=== PATIENT | male | born 1955 | race Caucasian/White ===

== ENCOUNTER → 2018-11-04 20:05 | Outpatient (CLI) | payer MEDICAID ==
[2015-10-21 13:53] VITALS: BMI 35.0
[~2018-11-04 20:05] MED LIST: AMBIEN10 MG PO; BAYER CHEWABLE81 MG PO; BRILINTA90 MG PO; CARDIZEM CD240 MG PO; GLUCOPHAGE500 MG PO; HYTRIN10 MG PO; HYZAAR 100-25 T1 TAB PO; IBUDONE 10-2001 TAB PO; XANAX0.5 MG PO
== END | disposition home or self-care (01) ==
LOC: D.LABREF 20:05
DX: R31.9 Hematuria, unspecified (principal)

== ENCOUNTER → 2018-11-18 10:12 | Outpatient (CLI) | payer MEDICAID ==
[2015-10-21 13:53] VITALS: BMI 35.0
[~2018-11-18 10:12] MED LIST changes: +ENTOCORT EC3 MG PO; +FARXIGA10 MG PO; +HYDROCODON-ACE1 EA10 PO; +LIPITOR20 MG PO
== END | disposition home or self-care (01) ==
LOC: D.CT 10:12
DX: R31.21 Asymptomatic microscopic hematuria (principal)

== ENCOUNTER 2018-11-26 05:40 | Day surgery (SDC) | payer MEDICAID ==
[2018-11-25 10:37] LABS: HEMOGLOBIN 14.2 g/dL (13.5-17.5); MCH 34.3 pg (26.0-34.0); MCHC 33.8 g/dL (31.0-37.0); MCV 101.4 fL (80.0-100.0); MEAN PLATELET VOLUME 10.2 fL (7.4-10.4); RBC 4.14 10x6/uL (4.20-6.10)
[2018-11-25 10:38] LABS: CALC OSMOLALITY 279 mosm/kg (275-300); CALCIUM 8.7 mg/dL (8.5-10.1); CARBON DIOXIDE 26.5 mmol/L (21.0-32.0); CHLORIDE - SERUM 100 mmol/L (98-107); CREATININE - SERUM 0.8 mg/dL (0.6-1.3); GLUCOSE 140 mg/dL (74-106); SODIUM 138 mmol/L (136-145); UREA NITROGEN 19 mg/dL (7-18); eGFR NON AFRICAN AMERICAN > 90 mL/min (90-120)
[~2018-11-26] VITALS: Ht 185.4 cm; Wt 117.9 kg
[2018-11-26 06:29] VITALS: BP 163/82; Ht 185.4 cm; Wt 117.9 kg
--- NOTE | 2018-11-26 09:03 | OP ---
PATIENT NAME: DOT FERNANDEZ MEDICAL RECORD: [id number] :55 LOCATION:[facility] ADMISSION DATE: SURGEON: ALEXIS GARCIA MD DATE OF OPERATION: 11/26/2018 SURGEON: Alexis Garcia MD ANESTHESIA: TIVA by Janusz Sr CRNA. DIAGNOSES: Elevated PSA of 4.5 and microscopic hematuria. PROCEDURE: Cystoscopy, transrectal ultrasound, and prostate biopsy. FINDINGS: A 36 gram prostate with intraprostatic stones. On cystoscopy, nonobstructive lateral lobes with a tight bladder neck. He has a trabeculated bladder. There are single ureteral orifices on each side. No bladder tumors were seen. The prostatic urethra is vascular. ESTIMATED BLOOD LOSS: None. SPECIMENS: Prostate biopsy cores. CLINICAL HISTORY: This is a 63-year-old male who was referred by the [facility] for an elevated PSA of 4.5. Previously, the PSA was normal. He has not started any testosterone treatments yet. He has history of diabetes mellitus type 2 and coronary angioplasty. He has been on terazosin for BPH for 6-7 years. For the past 8 years, he has had nocturia times 5-6 and the terazosin has not been really helping his symptoms. He has to void frequently up to 30 times a day. He feels that he is not fully emptying his bladder. Family history is negative for BPH and the grandfather had prostate cancer. On rectal examination, he has a rather flat prostate, which was about 30 grams in size without nodularity. He comes today for transrectal ultrasound of the prostate for an elevated PSA of 4.5. We will also be doing a cystoscopy for his microscopic hematuria. With respect to his voiding symptoms his IPSS score is 20 and his quality of life score is 4. His postvoid residual is 47 mL. HE IS ALLERGIC TO PENICILLIN. He was given Levaquin IV functional tester to the OR. DESCRIPTION OF PROCEDURE: The patient was given IV sedation. He was then placed in the dorsal lithotomy position and prepped and draped. We used a 17-Urdu cystoscope for cystoscopy. The findings are as outlined above. No bladder tumors were seen. The bladder was then emptied through the cystoscope sheath and the scope was removed. The transrectal ultrasound probe was introduced. He has a very broad flat prostate. Prostate size measurements were obtained at 36 grams. The intraprostatic stones are seen. No hypoechoic areas were seen. Sextant biopsies were obtained with at least 3 cores from each sextant. Once all the specimens were obtained, the procedure was terminated. The patient was awakened and brought to the preoperative holding area from where he will be sent home. I will see him in followup next week to review the pathology results with him. TRANSINT:[id number] Voice Confirmation ID: [id number] DOCUMENT ID: [id number] OPERATIVE REPORT [id number] DOT FERNANDEZ ROBERT S MD at 0903 CC: [id number] DICTATION DATE: 11/26/18817 SUGAR REFINERY SUPERVISOR: 11/26/[address] [facility] [address] [place] [address]
--- NOTE | 2018-11-26 09:23 | NUR ---
0900UP TO BATHROOM. POSTOP VOID #2 WITH YELLOW URINE. BUBBLES NOTED IN URINE/BOWL FROM URINARY STREAM. NO GROSS BLOOD OR CLOTS NOTED. BACK TO BED AMBULATORY WITHOUT PROBLEMS. IV DC'ED WITH CATH INTACT 575ML LTC. PRESSURE TO SITE. DRESSING. Ricky TAYLOR R.N. 0910 DRESSED, AWAKE, & ALERT. GIVEN DISCHARGE INFORMATION INCLUDING MED REC., RTC APPT., [facility] D/C INSTRUCTIONS, PROSTATE BIOPSY DISCHARGE INSTRUCTIONS, & CYSTOSCOPY D/C INSTRUCTIONS. PT VOICED UNDERSTANDING. NO QUESTIONS. TO PRIVATE CAR PER LISA ARGUETA Omise. HOME WITH ERIK PÉREZ, FRIEND. Ricky TAYLOR R.N.
== END 2018-11-26 09:10 | disposition home or self-care (01) ==
LOC: D.OPS 05:40 → D.PAN 07:30 → D.OPS 07:30 → D.PAN 08:10 → D.OPS 08:10
PROVIDERS: Anesthesiology
DX: C61 Malignant neoplasm of prostate (principal); N42.32 Atypical small acinar proliferation of prostate; R31.29 Other microscopic hematuria; N32.89 Other specified disorders of bladder; Z01.812 Encounter for preprocedural laboratory examination

== ENCOUNTER → 2018-12-06 10:01 | Outpatient (CLI) | payer MEDICAID ==
[2018-11-26 06:29] VITALS: BMI 34.3
== END | disposition home or self-care (01) ==
LOC: D.NM 10:00
PROVIDERS: ATTEND Urology
DX: C61 Malignant neoplasm of prostate (principal)

== ENCOUNTER → 2019-06-11 09:53 | Outpatient (CLI) | payer MEDICAID ==
[2018-11-26 06:29] VITALS: BMI 34.3
--- NOTE | 2019-06-12 15:51 | EC ---
PATIENT:DOT FERNANDEZ DATE OF SERVICE: 06/11/19 SEX: M MEDICAL RECORD: [id number] DATE OF : 55 [facility] AGE OF PATIENT: 63 ADMISSION DATE: 06/11/19 REFERRING PHYSICIAN: INTERPRETING PHYSICIAN: THEA MOY MD ECHOCARDIOGRAM REPORT ECHO CHARGES 4 ECHO COMPLETE Date: 06/11/19 CLINICAL DIAGNOSIS: H/O CAD/HTN/A-FIB ECHOCARDIOGRAPHIC MEASUREMENTS (adult normal given) AC root (d.<3.7cm) 4.3 cm LV Septum d (<1.2 cm> 1.3 cm Valve Excursion 1.2 cm LV Septum (systole) 2.2 cm Left Atria (s.<4.0cm> 5.9 cm LVPW d(<1.2cm) 1.5 cm RV (d.<2.3cm) 3.5 cm LVPW (sytole) 2.4 cm LV diastole(<5.6CM) 6.1 cm MV E-F(>70mm/sec) cm LV systole 2.9 cm LVOT Diameter 2.3 cm MV exc.(>10mm) cm Est.ejection fraction (50-75%) % DOPPLER: LVIT cm/sec A cm/sec E 163 cm/sec LA cm/sec RVSP 30.0 mmHg LVOT 128 cm/sec AOP1/2T m/s Asc. Ao 238 cm/sec RVOT 87.0 cm/sec RA cm/sec PA 121 cm/sec AV Gradient Peak 23.0 mmHg AV Mean 11.1 mmHg AV Area 2.4 cm MV Gradient Peak 18.1 mmHg MV Mean 4.9 mmHg MV Area cm COMMENTS: OP - HC Ward Maid: 1 JADEN LARESOE Technical Service Specialist: 3 Dr. Mitchell TAPE# PACS Pericardial Effusion Y DATE OF SERVICE: Adequate 2D, color flow, spectral Doppler, and M-mode. LVH is present. LV internal dimension is normal. Wall motion is normal. EF is greater than or equal to 55%. Aortic valve is tricuspid. No evidence of stenosis by Doppler interrogation. Left atrium is dilated at 5.9 cm. Mitral valve shows no prolapse. Mild MR. Right-sided chambers are grossly normal. Mild TR. Questionable ASD in the subcostal view. TRANSINT:[id number] Voice Confirmation ID: [id number] DOCUMENT ID: [id number] ECHOCARDIOGRAM REPORT [id number] DOT FERNANDEZ GREGORY A MD at 1551 CC: [id number] DICTATION DATE: 06/12/19 1252 SPECIALTY SALES CONSULTANT: 06/12/19 1309 DEP CLI 06/11/19 [place] [id number] [place] [id number]
== END | disposition home or self-care (01) ==
LOC: D.HCCARDIO 09:53
PROVIDERS: ATTEND Internal Medicine Interventional Cardiology
DX: I10 Essential (primary) hypertension (principal)

== ENCOUNTER → 2020-07-19 10:16 | Outpatient (CLI) | payer MEDICAID ==
[2018-11-26 06:29] VITALS: BMI 34.3
--- NOTE | 2020-07-21 10:43 | EC ---
PATIENT:DOT FERNANDEZ DATE OF SERVICE: 07/19/20 SEX: M MEDICAL RECORD: [id number] DATE OF : 55 [facility] AGE OF PATIENT: 64 ADMISSION DATE: 07/19/20 REFERRING PHYSICIAN: INTERPRETING PHYSICIAN: THEA MOY MD ECHOCARDIOGRAM REPORT ECHO CHARGES 4 ECHO COMPLETE Date: 07/19/20 CLINICAL DIAGNOSIS: HX OF CAD/AFIB/HTN / MITRAL AND TRICUSPID REGURG ECHOCARDIOGRAPHIC MEASUREMENTS (adult normal given) AC root (d.<3.7cm) 3.8 cm LV Septum d (<1.2 cm> 2.0 cm Valve Excursion 1.5 cm LV Septum (systole) 2.3 cm Left Atria (s.<4.0cm> 5.8 cm LVPW d(<1.2cm) 2.2 cm RV (d.<2.3cm) 5.4 cm LVPW (sytole) 2.7 cm LV diastole(<5.6CM) 5.9 cm MV E-F(>70mm/sec) cm LV systole 4.0 cm LVOT Diameter 2.1 cm MV exc.(>10mm) 2.2 cm Est.ejection fraction (50-75%) % DOPPLER: LVIT cm/sec A 106.0cm/sec E 67.0 cm/sec LA cm/sec RVSP 28 mmHg LVOT 104 cm/sec AOP1/2T m/s Asc. Ao 190 cm/sec RVOT 81 cm/sec RA cm/sec PA 131 cm/sec AV Gradient Peak 14.46mmHg AV Mean 7.37 mmHg AV Area 1.7 cm MV Gradient Peak 15.04mmHg MV Mean 3.54 mmHg MV Area cm COMMENTS: Keyliner: 2 TJ PLEITEZ Mixer Operator Hot Metal: 3 Dr. Mitchell TAPE# PACS Pericardial Effusion N DATE OF SERVICE: Adequate 2D echo, color-flow imaging, spectral Doppler, and M-Mode Fairly marked LVH. LV internal dimension is normal. Wall motion is normal. EF is greater than or equal to 55%. Aortic valve sclerosis without stenosis by Doppler interrogation. Left atrium is dilated 5.8 cm. Mitral valve is thickened. Mild plus MR. Right-sided chamber is grossly normal. Mild TR. TRANSINT:[id number] Voice Confirmation ID: [id number] DOCUMENT ID: [id number] ECHOCARDIOGRAM REPORT [id number] DOT FERNANDEZ GREGORY A MD at 1043 CC: [id number] DICTATION DATE: 07/20/20 1240 MANAGER UNDERWRITING: 07/20/20 1428 DEP CLI 07/19/20 [place] [id number] [place] [id number]
== END | disposition home or self-care (01) ==
LOC: D.HCCECHO 10:16
PROVIDERS: ATTEND Internal Medicine Interventional Cardiology
DX: I25.10 Atherosclerotic heart disease of native coronary artery without angina pectoris (principal)

== ENCOUNTER 2021-01-03 06:23 | Day surgery (SDC) | payer MEDICARE, MEDICAID ==
[~2021-01-03] VITALS: Ht 185.4 cm; Wt 120.0 kg
--- NOTE | ~2021-01-03 | OP ---
PATIENT NAME: DOT FERNANDEZ MEDICAL RECORD: [id number] :55 LOCATION:[facility] ADMISSION DATE: SURGEON: EZ SYLVESTER DO DATE OF OPERATION: 01/03/2021 PROCEDURE: Colonoscopy with polypectomy. INDICATIONS FOR PROCEDURE: Diverticular disease, hematochezia, history of colon polyps. SCOPE: Olympus video pediatric colonoscope. MEDICATIONS: Propofol 700 mg IV per anesthesia. WITHDRAWAL TIME: 14 minutes. ESTIMATED BLOOD LOSS: Minimal. COMPLICATIONS: None. FINDINGS AND DESCRIPTION OF PROCEDURE: Informed consent was given. The patient was made comfortable with the above medication. After reaching an adequate level of sedation by slow IV push, the patient was placed on his left side. Digital rectal examination was performed and was normal. The endoscope was advanced under direct visualization through the rectum to the cecum, confirmed by the presence of the appendiceal orifice and ileocecal valve. The endoscope was slowly withdrawn, and the mucosa was carefully examined. The prep quality was good involving the left side of the colon, but poor in the cecum, ascending colon, and transverse colon making visualization somewhat difficult. There were 5 polyps visualized on today's examination. They were all benign-appearing and sessile and located in the transverse colon. They ranged in size from 3 to 8 mm in diameter. They were all removed using a hot snare. There was evidence of mild diverticulosis involving the descending and sigmoid colon. Retroflexion was performed in the rectum with visualization of grade I internal hemorrhoids without bleeding. The endoscope was withdrawn from the patient. The patient tolerated the procedure well and there were no complications. IMPRESSION: 1. Five polyps as described above removed using a hot snare. 2. Mild diverticulosis of the left side of the colon. 3. Grade I internal hemorrhoids without bleeding. PLAN AND RECOMMENDATIONS: 1. Discharge home when recovery parameters are met. 2. Follow up biopsy specimen results. 3. High fiber diet. 4. Continue current medications. 5. Recall colonoscopy in 1 to 2 years based on a number of polyps removed today and poor prep quality. TRANSINT:[id number] Voice Confirmation ID: [id number] DOCUMENT ID: [id number] OPERATIVE REPORT [id number] DOT FERNANDEZ EZ SYLVESTER DO CC: [id number] DICTATION DATE: 01/03/21917 DIRECTOR OF FEDERAL SALES: 01/03/[address] [facility] 01/03/21 [facility] [address] [place] [address]
[2021-01-03 07:09] LABS: HEMATOCRIT 45.3 % (42.0-54.0); HEMOGLOBIN 14.6 g/dL (13.5-17.5); MCH 32.4 pg (26.0-34.0); MCHC 32.2 g/dL (31.0-37.0); MCV 100.7 fL (80.0-100.0); MEAN PLATELET VOLUME 9.1 fL (7.4-10.4); RBC 4.5 10x6/uL (4.20-6.10)
[2021-01-03 07:24] LABS: INR 1.16 (0.85-1.17); PROTIME 13.7 SECONDS (11.6-15.0)
[2021-01-03] MEDS ORDERED: XARELTO20 MG PO (07:25)
[2021-01-03] MEDS ORDERED: XANAX0.5 MG PO (07:26)
[2021-01-03 07:30] VITALS: Ht 185.4 cm; Wt 120.0 kg
[2021-01-03 07:59] LABS: BASOPHILS 0.5 % (0-2); EOSINOPHILS 3.2 % (0-7); HEMATOCRIT 44.3 % (42.0-54.0); HEMOGLOBIN 14.6 g/dL (13.5-17.5); LYMPHOCYTE ABS# 1.68 10x3/uL (1.32-3.57); LYMPHOCYTES 41.9 % (15-50); MCH 33.1 pg (26.0-34.0); MCV 100.5 fL (80.0-100.0); MEAN PLATELET VOLUME 9.5 fL (7.4-10.4); MONOCYTES 12.7 % (2-11); NEUTROPHIL ABS# 1.67 10x3/uL (1.78-5.38); NEUTROPHILS 41.7 % (40-80); PLATELET COUNT 126 10x3/uL (130-400); RBC 4.41 10x6/uL (4.20-6.10); RDW 12.9 % (11.5-14.5)
[2021-01-03 08:00] LABS: CALC OSMOLALITY 280 mosm/kg (275-300); CALCIUM 9.3 mg/dL (8.5-10.1); CARBON DIOXIDE 29.1 mmol/L (21.0-32.0); CHLORIDE - SERUM 103 mmol/L (98-107); CREATININE - SERUM 0.9 mg/dL (0.6-1.3); GLUCOSE 148 mg/dL (74-106); POTASSIUM - SERUM 3.7 mmol/L (3.5-5.1); SODIUM 139 mmol/L (136-145); UREA NITROGEN 12 mg/dL (7-18); eGFR NON AFRICAN AMERICAN 90 mL/min (90-120)
--- NOTE | 2021-01-03 10:08 | NUR ---
IV D/C'D WITH CANNULA INTACT, PRESSURE HELD AND DRSG PLACED. DISCHARGE INSTRUCTIONS GIVEN AND PT VERBALIZED AN UNDERSTANDING. DENIES C/O AND STATES READY TO GO HOME
== END 2021-01-03 09:55 | disposition home or self-care (01) ==
LOC: D.OPS 06:23
PROVIDERS: Anesthesiology; ATTEND Internal Medicine Gastroenterology
DX: K57.30 Diverticulosis of large intestine without perforation or abscess without bleeding (principal); K92.1 Melena; Z86.010 Personal history of colon polyps; K63.5 Polyp of colon; K64.0 First degree hemorrhoids